=== PATIENT | female | born 1970 | race Caucasian/White ===

== ENCOUNTER → 2016-06-19 | Outpatient (CLI) | payer OTHER ==
[~2016-06-19] MED LIST: CALC625T PO; CHOL100027 PO; HYDUNK PO; IMD2X PO
--- NOTE | 2016-06-20 13:15 | MAMMOGRAPHY REPORT ---
BILATERAL DIGITAL SCREENING MAMMOGRAM TOMOSYNTHESIS WITH CAD: 06/19/2016 CLINICAL HISTORY: Routine screening. Patient has no complaints. TECHNIQUE: Breast tomosynthesis in addition to standard 2D mammography was performed. Current study was also evaluated with a Computer Aided Detection (CAD) system. COMPARISON: Comparison is made to exams dated: 06/15/2015 mammogram, 06/12/2014 mammogram, 06/11/2013 ma mmogram, 06/10/2012 mammogram, 06/08/2011 mammogram, and 12/02/2009 mammogram - [facility]ter. BREAST COMPOSITION: The tissue of both breasts is heterogeneously dense, which may obscure small ma sses. FINDINGS: There is an incompletely visualized asymmetry in the far posterior left breast, along the posterior nipple line on the MLO view and corresponding tomosynthesis images, for which additional spot compression tomosynthesis views and possibly ultrasound are recommended. There is a 14 mm asym metry in the medial posterior right breast on the CC view, and a possible partially circumscribed an d obscured 16 mm mass in the medial posterior left breast on the CC view, for which additional spot compression to most of the cysts views and possibly ultrasound are recommended. There are a few round and punctate benign-appearing microcalcifications bilaterally. No other suspic ious mass, architectural distortion or cluster of microcalcifications is seen. IMPRESSION: ACR BI-RADS CATEGORY 0: INCOMPLETE EVALUATION: NEED ADDITIONAL IMAGING EVALUATION The incompletely visualized in the far posterior left breast, possible 16 mm mass in the medial left breast, and right medial asymmetry need additional imaging evaluation. The patient will be called to schedule an appointment. Approximately 10% of breast cancers are not detected with mammography. A negative mammographic repor t should not delay biopsy if a clinically suggestive mass is present. Alesha Rossi M.D. ay/:06/19/2016 16:50:47 [facility]: Quynh KURTZ(Lily)(Petar), [facility] letter sent: Addl Imaging 0 BI-RADS Code: ACR BI-RADS Category 0: Incomplete Evaluation: Need Additional Imaging Evaluation
== END | disposition home or self-care (01) ==
LOC: C.MAMM 07:15
PROVIDERS: ATTEND Family Medicine
DX: Z12.31 Encounter for screening mammogram for malignant neoplasm of breast (principal)

== ENCOUNTER → 2016-06-26 | Outpatient (CLI) | payer OTHER ==
--- NOTE | 2016-06-27 07:56 | MAMMOGRAPHY REPORT ---
BILATERAL DIGITAL DIAGNOSTIC MAMMOGRAM TOMOSYNTHESIS AND TARGETED BILATERAL ULTRASOUND: 06/26/2016 CLINICAL HISTORY: 45 year old woman called back from screening mammography for an asymmetry in the f ar posterior slightly superior left breast on the MLO view, an asymmetry in the medial left breast a nd medial right breast. TECHNIQUE: Spot compression right CC and left MLO tomosynthesis images were obtained. COMPARISON: Comparison is made to exams dated: 06/19/2016 mammogram, 06/15/2015 mammogram, 06/12/2014 m ammogram, 06/11/2013 mammogram, 06/10/2012 mammogram, and 06/08/2011 mammogram - [facility]. BREAST COMPOSITION: The tissue of both breasts is heterogeneously dense, which may obscure small ma sses. FINDINGS: There is effacement of the 14 mm asymmetry in the medial, middle to posterior right breast with the additional spot compression tomosynthesis images. No focal area of architectural distorti on or definite mass. A spot compression left MLO view including more posterior tissue demonstrates effacement of the asymmetry partially visualized in the far posterior aspect of the left breast david g the posterior nipple line. This most likely represented overlapping fibrolinear markings. Targeted ultrasound was performed in the medial aspect of each breast. Particular attention was nas d to the possible 15 mm mass in the medial left breast, and 14 mm asymmetry in the medial right elle st which effaced with additional imaging. Throughout the right medial breast, a few scattered anech oic benign simple cysts are incidentally seen in the 12:00 axis, the largest measuring 5 mm. No earnest picious solid or cystic mass is identified. Within the left 11:00 breast, 4 cm from the nipple, the re is a cluster of multiple anechoic benign simple cysts, measuring 21.9 x 8.2 x 19.4 mm in conglome rate. This correlates with the mammographic mass and is also benign. IMPRESSION: ACR BI-RADS CATEGORY 2: BENIGN, TARGETED ULTRASOUND ACR BI-RADS CATEGORY 2: BENIGN 1. There is effacement of the possible 14 mm asymmetry in the medial right breast, and no suspiciou s sonographic correlate. This most likely represented normal overlapping fibrolinear tissue. 2. There is effacement of the asymmetry in the far posterior left breast on the MLO view most likel y represented normal overlapping fibrolinear markings. 3. Targeted ultrasound performed in the area of suspected mass in the medial left breast on the CC view demonstrates a cluster of multiple anechoic benign simple cysts in the 11:00 axis, which correl ates well with the mammographic finding. The cysts are benign and no close follow-up is needed at t his time. Recommend return to annual screening mammography schedule. These results and recommendations were d iscussed with the patient at the time of the exam. Approximately 10% of breast cancers are not detected with mammography. A negative mammographic repor t should not delay biopsy if a clinically suggestive mass is present. Alesha Rossi M.D. ay/:06/26/2016 15:49:17 Hot Die Picker: Julia Haynes, [facility] letter sent: Normal 1/2 BI-RADS Code: ACR BI-RADS Category 2: Benign Ultrasound BI-RADS: ACR BI-RADS Category 2: Benign
== END | disposition home or self-care (01) ==
LOC: C.MAMM 13:05
PROVIDERS: ATTEND Family Medicine
DX: N63 Unspecified lump in breast (principal); N60.02 Solitary cyst of left breast

== ENCOUNTER → 2017-06-21 | Outpatient (CLI) | payer OTHER ==
--- NOTE | 2017-06-21 15:32 | MAMMOGRAPHY REPORT ---
BILATERAL DIGITAL SCREENING MAMMOGRAM TOMOSYNTHESIS WITH CAD: 06/21/2017 CLINICAL HISTORY: Routine screening. Patient has no complaints. TECHNIQUE: Breast tomosynthesis in addition to standard 2D mammography was performed. Current study was also evaluated with a Computer Aided Detection (CAD) system. COMPARISON: Comparison is made to exams dated: 06/19/2016 mammogram, 06/15/2015 mammogram, 06/12/2014 ma mmogram, 06/11/2013 mammogram, 06/10/2012 mammogram, and 12/02/2009 mammogram - [facility]. BREAST COMPOSITION: The tissue of both breasts is heterogeneously dense, which may obscure small mas ses. FINDINGS: No suspicious masses, calcifications, or areas of architectural distortion are noted in ei ther breast. There has been no significant interval change compared to prior exams. Scattered bilate ral benign-appearing calcifications are not significantly changed. Asymmetry within the right inferi or posterior breast on the MLO view is stable compared to multiple prior exams. IMPRESSION: ACR BI-RADS CATEGORY 2: BENIGN There is no mammographic evidence of malignancy. A 1 year screening mammogram is recommended. The pa tient will receive written notification of the results. Approximately 10% of breast cancers are not detected with mammography. A negative mammographic report should not delay biopsy if a clinically suggestive mass is present. Anali London M.D. ah/:06/21/2017 07:53:32 Train Starter: Nancy WARE)([place]), [facility] letter sent: Normal 1/2 BI-RADS Code: ACR BI-RADS Category 2: Benign
== END | disposition home or self-care (01) ==
LOC: C.MAMM 07:32
PROVIDERS: ATTEND Family Medicine
DX: Z12.31 Encounter for screening mammogram for malignant neoplasm of breast (principal)